=== PATIENT | male | born 2000 | race Hispanic/Latino ===

== ENCOUNTER 2023-03-24 19:55 | Emergency (ER) | payer OTHER ==
[~2023-03-24] VITALS: Ht 170.2 cm; Wt 104.3 kg
[2023-03-24] MEDS ORDERED: HYDR50CA50 PO (21:39)
[2023-03-24 21:44] VITALS: BP 146/74
== END 2023-03-24 21:54 | disposition home or self-care (01) ==
LOC: EEVIPCON 19:55 → EDH 19:55
DX: F41.9 Anxiety disorder, unspecified (principal); J45.909 Unspecified asthma, uncomplicated
CPT/HCPCS: 71045